=== PATIENT | male | born 1960 | race Caucasian/White ===

== ENCOUNTER 2024-11-08 09:58 | Emergency (ER) | payer BC ==
[~2024-11-08] VITALS: Ht 167.6 cm; Wt 68.0 kg
[2024-11-08 10:42] VITALS: PULSE 85; RESP 17; TEMP 98.1; O2SAT 100
[2024-11-08] MEDS: HYDROCODONE/APAP 5MG-325MG TAB PO ONE (11:30)
[2024-11-08] MEDS: PREDNISONE 20 MG TAB PO ONE (11:31)
[2024-11-08 11:33] LABS: BILIRUBIN,URINE NEGATIVE (NEGATIVE); CLARITY,URINE CLOUDY (CLEAR); COLOR,URINE YELLOW (YELLOW); GLUCOSE, URINE NEGATIVE (NEGATIVE); KETONES,URINE NEGATIVE (NEGATIVE); LEUKOCYTE ESTERASE ,URINE LARGE (NEGATIVE); NITRITE,URINE NEGATIVE (NEGATIVE); PH,URINE 7 (5 - 7); PROTEIN,URINE DIPSTICK 1+ (NEGATIVE); URINE UROBILINOGEN 1 mg/dL (0.2 - 1)
[2024-11-08 11:48] LABS: BACTERIA,URINE MANY /HPF; EPITHELIAL CELLS,URINE FEW /LPF; WBC,URINE (MAN) >50 /HPF (0-5)
[2024-11-08] MEDS ORDERED: ULTRAM 50MG50 MG PO (12:21)
[2024-11-08] MEDS ORDERED: CEFDINIR300 MG PO (12:21)
[2024-11-08] MEDS ORDERED: MEDROL4 M2 PO (12:21)
== END 2024-11-08 13:30 | disposition home or self-care (01) ==
LOC: ER 10:49
DX: M54.41 Lumbago with sciatica, right side (principal); N39.0 Urinary tract infection, site not specified; I10 Essential (primary) hypertension; Z87.442 Personal history of urinary calculi
CPT/HCPCS: 81001; 87086; 99283; J7512